=== PATIENT | female | born 1990 | race Caucasian/White ===

== ENCOUNTER → 2018-04-14 14:40 | Outpatient (CLI) | payer OTHER, MEDICAID, SELFPAY ==
[2018-04-14 16:33] LABS: Urine N gonorrhoeae NOT DETECTED
[2018-04-14 17:16] LABS: Urine Chlamydia NOT DETECTED
[2018-04-14 18:09] LABS: HIV 1 and 2 Antibody NEGATIVE (NEGATIVE); Hep C Virus Ab w/Reflex Quant NEGATIVE s/c (NEGATIVE)
[2018-04-17 02:32] LABS: HSV 2 IGG AB < 0.90 index (< 0.90); HSV1IGG < 0.90 index (< 0.90)
[2018-04-19 12:18] LABS: AFP, Serum 25.3 ng/mL; Calc Gestational Age 16.4; Cigarette Smoker N; Donated Egg NOT GIVEN; Donor Egg Age NOT GIVEN; Estriol, Free 0.84 ng/mL; Inhibin A, Dimeric 231 pg/mL; Maternal Ethnicity CAUCASIAN; Maternal Weight 129 lbs; Number of Fetuses 1; Previous Pregnancy Down Syndro NOT GIVEN; hCG, MoM 1.15; hCG, Serum 39.5 IU/mL
== END ==
PROVIDERS: Family Medicine; Visit Provider Obstetrics & Gynecology
DX: Z34.91 Encounter for supervision of normal pregnancy, unspecified, first trimester (principal); Z3A.16 16 weeks gestation of pregnancy
CPT/HCPCS: 36415; 82105; 82677; 84702; 86336; 86695; 86696; 86703; 86803; 87491; 87591

== ENCOUNTER → 2018-05-10 10:42 | Outpatient (CLI) | payer OTHER, MEDICAID, SELFPAY ==
--- NOTE | 2018-05-10 10:48 | DI.US.S_ITS ---
PROCEDURE: US OB >= 14 WEEKS FETUS INDICATIONS: anatomy screening OUTSIDE/PRIOR DATING DATA: Last menstrual period (LMP): Not available. LMP-based estimated date of delivery (CORINA): Not available. First dating scan (date and location): 02/08/18. Estimated date of delivery (CORINA) from first dating scan: 09/26/18, plus or -5 days. TECHNIQUE: Real-time scanning was performed of the fetus, with image documentation and biometric measurements. Endovaginal scanning: Not needed for this study COMPARISON: None. FINDINGS: General: A single living intrauterine gestation is present. Presentation: Vertex Placenta: Placental position is posterior, without previa. Amniotic fluid index: 13.2 cm, normal range is 5-24 cm. heart rate: 155 beats per minute. Maternal cervical canal: 3.2 cm long. Normal lower limit is 2.5 cm. biometrics: Biparietal diameter: 4.6 cm, 19 weeks 6 days Head circumference: 17.3 cm, 19 weeks 6 days Abdominal circumference: 14.8 cm, 20 weeks 1 day Femur length: 3.2 cm, 19 weeks 6 days Estimated gestational age from initial scan: 20 weeks 1 day Composite gestational age from present scan: 19 weeks 6 days Estimated weight and percentile: 325 g, 36th percentile Measurement variability for biometric dating: +/- 7 days from 14 weeks to 15 weeks 6 days gestation, +/- 10 days from 16 weeks to 21 weeks 6 days gestation, +/- 2 weeks from 22 weeks to 27 weeks 6 days gestation, +/- 3 weeks for 28 weeks gestation or later. weight reference: 4500 g or EFW >90/95% is considered macrosomia or large for gestational age. EFW <10% is small for gestational age. EFW 5% or less is considered intra-uterine growth restriction. Anatomic survey: Neuro: Ventricles are non-dilated at less than 10 mm. Cisterna magna is normal at 3-11 mm. Cerebellum is normal in size and morphology. Nuchal skin fold: Normal at less than 6 mm between 14-21 weeks gestational age. Face: Nose and lips, facial profile are normal. Spine: No evidence for spina bifida. Heart: 4-chambered heart is present, with normal ventricular outflow tracts. Diaphragm: Diaphragm is intact. Stomach: Left-sided stomach is present. Kidneys: No hydronephrosis. Normal is less than 5 mm in 2nd trimester, less than 7 mm in 3rd trimester. Cord: 3-vessel cord has orthotopic insertion. Bladder: Normal in size. Extremities: All 4 extremities identified. IMPRESSION: Single living intrauterine gestation with the delivery date projected to be centered on 09/26/18, plus or -5 days. Appropriate interval growth, no anomalies seen. Dictated by: Julian Franz M.D. on 05/10/2018 at 13:38 Approved by: Julian Franz M.D. on 05/10/2018 at 13:41
== END ==
PROVIDERS: PCP Family Medicine; Visit Provider Family Medicine
DX: Z36.89 Encounter for other specified antenatal screening (principal); Z3A.19 19 weeks gestation of pregnancy
CPT/HCPCS: 76811

== ENCOUNTER → 2018-07-21 11:16 | Outpatient (CLI) | payer OTHER, MEDICAID, SELFPAY ==
[2018-07-21 12:57] LABS: Hematocrit 30.5 % (36-46); Hemoglobin 10.7 g/dL (12.0-16.0)
[2018-07-21 13:14] LABS: GTT (PREG) 1 Hour PP 50gm Dose 137 mg/dL (76-139)
== END ==
PROVIDERS: PCP Family Medicine; Visit Provider Family Medicine
DX: Z3A.29 29 weeks gestation of pregnancy (principal)
CPT/HCPCS: 36415; 82950; 85014; 85018

== ENCOUNTER → 2018-09-03 10:03 | Outpatient (CLI) | payer OTHER, MEDICAID, SELFPAY ==
[2018-09-04 11:53] LABS: Strep Grp B PCR NEG for Grp B Strep
== END ==
PROVIDERS: PCP Family Medicine; Visit Provider Family Medicine
DX: Z3A.36 36 weeks gestation of pregnancy (principal)
CPT/HCPCS: 87653

== ENCOUNTER 2018-09-08 10:13 | Outpatient (CLI) | payer OTHER, MEDICAID, SELFPAY ==
--- NOTE | 2018-09-08 11:10 | PM.OBTRLD ---
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) Family History Grandmother Hypertension Social History marital status: unmarried,living together number of children: 1 Smoking Status: Never smoker alcohol intake: never substance use type: does not use Family History Grandmother Hypertension Social History marital status: unmarried,living together number of children: 1 Smoking Status: Never smoker alcohol intake: never substance use type: does not use Evaluation Evaluation Baseline heart rate: 130 Variability: Moderate (11-25) monitor accelerations: Present monitor decelerations: Absent Uterine Contraction Intensity: Mild Category of Tracing: I Diagnosis, Plan/Disposition Final Diagnosis (1) 37 weeks gestation of : Current Visit: Yes Status: Acute Plan/Disposition Plan: 28-year-old at 37 weeks gestation who presented to the center with headache and lower extremity edema. Blood pressure was normal on multiple occasions. Minimal lower extremity edema per nursing. NST reactive. Recommended Tylenol for headache. Follow up in clinic as scheduled later this week.
== END 2018-09-08 11:20 | disposition home or self-care (01) ==
LOC: LABOR 10:56 → OB 09-09 11:39
PROVIDERS: PCP Family Medicine; Visit Provider Family Medicine
DX: Z34.93 Encounter for supervision of normal pregnancy, unspecified, third trimester (principal); R51 Headache; Z3A.37 37 weeks gestation of pregnancy
CPT/HCPCS: 59025; G0378; G0379

== ENCOUNTER 2018-10-01 06:48 | Inpatient (IN) | payer OTHER, MEDICAID, SELFPAY ==
--- NOTE | 2018-10-01 07:34 | P.HPOB_ITS ---
OB HPI Date/Time Date of admission: 10/01/18 Date Patient Seen: 10/01/18 Time Patient Seen: 07:34 History of Present Condition Chief complaint: OBS : 2 Para: 1 Estimated Date of Delivery: 09/26/18 Estimated Gestational Age (weeks): 40w5d Narrative: Skye Alejandro is a 28 year old at 40 weeks and 5 days gestation here for induction of labor for postdates and maternal discomfort. Uncomplicated with normal first and second trimester ultrasounds. Indications Indication for induction OB: post dates and maternal discomfort History of Present care: good care, initiated at week # (11 weeks), number of visits (12) and pounds weight gain (47 lbs) Dating criteria: based on 1st trimester US only Ultrasounds: normal 1st trimester US and normal mid trimester US Obstetrical complications: none Medical complications: none Preadmission Labs Blood type: AB (+) positive -: Antibody screen: negative, GBS status: negative, HBsAG: negative, HIV: negative, HSV 1: negative, HSV 2: negative and RPR/VDLR: negative -: Chlamydia screen: not detected and Gonorrhea screen: not detected -: Rubella: immune HCT: 40.6 Quad screen: Normal 1 hr GTT: 137 Prior (ies) History: 08/14/2016 7 lbs male, light epidural Evaluation Evaluation Baseline heart rate: 120 Variability: Moderate (11-25) monitor accelerations: Present monitor decelerations: Absent Contraction Frequency (minutes): 5 Uterine Contraction Intensity: Mild Category of Tracing: I Cervical dilation (cm): 2 Cervical effacement (%): 75 station: -2 [facility] 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) Family History Grandmother Hypertension Social History marital status: unmarried,living together number of children: 1 Smoking Status: Never smoker alcohol intake: never substance use type: does not use Family History Grandmother Hypertension Social History marital status: unmarried,living together number of children: 1 Smoking Status: Never smoker alcohol intake: never substance use type: does not use Meds Home Medications Medication Instructions Recorded Confirmed Type ondansetron 4 mg disintegrating 4 mg PO Q6H PRN #20 tab 02/19/18 Rx tablet Review of Systems Review of Systems All systems reviewed & are unremarkable except as noted in HPI and below Exam Const General: healthy appearing and comfortable HENMT Head: normal to inspection Ears: hearing grossly normal bilaterally Nose: external nose normal Face and sinus: normal facial exam Mouth: oral mucosae normal Teeth and gingiva: dentition normal Eyes General: appearance normal, both eyes and all related structures Neck Neck: normal visual inspection Resp Effort & Inspection: normal respiratory effort Auscultation: clear to auscultation bilaterally Cardio Rate: regular rate Rhythm: regular rhythm Heart Sounds: S1 normal and S2 normal External Female Exam: external appearance normal Manual OB Exam: dilated 2, effaced 75% and station -2 Uterus Location (Fundal Height): 40 Presentation: vertex Estimated Weight (lbs): 7 Skin General: no rashes or lesions noted Neuro General: alert, awake and oriented x3 Extrem General: no pedal edema Objective Labs Result Diagrams: 10/01/18 08:00
[2018-10-01] MEDS: LACTATED RINGERS 1,000 ML 100 ML IV ×2 (08:20→13:14)
[2018-10-01] MEDS: OXYTOCIN PREMIX 30 UNIT/500 ML PLAST..BAG IV (08:25)
[2018-10-01 09:15] LABS: Add Manual Diff / Slide Review NO; Basophils Absolute Auto 100 /uL (0-100); Basophils Percent Auto 0.6 % (0-2); Eosinophils Absolute Auto 100 /uL (0-450); Eosinophils Percent Auto 0.8 % (2-4); Hematocrit 32.6 % (36-46); Hemoglobin 10.6 g/dL (12.0-16.0); Lymphocytes Absolute Auto 2300 /uL (1100-4500); Lymphocytes Percent Auto 25.2 % (25-40); Mean Corpuscular HGB Conc 32.3 % (30-36); Mean Corpuscular Hemoglobin 25.5 PG (26-34); Mean Corpuscular Volume 78.9 fL (80-100); Monocytes Absolute Auto 500 /uL (0-900); Monocytes Percent Auto 5.7 % (3-14); Neutrophils Absolute Auto 6300 /uL (1500-7000); Neutrophils Percent Auto 67.7 % (50-75); Platelet Count 239 X10^3/uL (150-400); Red Blood Cell Count 4.14 X10^6/uL (4.0-5.2); Red Cell Distribution Width 15.8 % (11.6-14.8); White Blood Cell Count 9.3 X10^3/uL (4.5-11.0)
[2018-10-01 10:42] VITALS: BP 118/75
--- NOTE | 2018-10-01 12:56 | PM.OBPNLAB ---
Date/Time Date Patient Seen: 10/01/18 Time Patient Seen: 12:34 Pain Control Pain control: tolerating well Comments: Contractions becoming more painful but tolerable. Pelvic Exam Dilation (cm): 3 Effacement (%): 90 station: -2 Amniotic membrane status: Ruptured (AROM with small amount of clear fluid) Contractions Pitocin rate (mU/min): 6 Contraction frequency (min): 2 Contraction pattern: Regular Contraction intensity: Moderate Status status: Category l Heart Rate Baseline: 120 Monitor Accelerations: Present Monitor Decelerations: Absent Monitor Variability: Moderate Assessment and Plan Assessment: induction ongoing Plan: continuous present management
[2018-10-01] MEDS: miSOPROStol 200 MCG TABLET 800 MCG PR (16:50)
--- NOTE | 2018-10-01 17:21 | PM.OBPRVD ---
Delivery date: 10/01/18 Induction method: per pitocin protocol Delivery augmentation: rupture of membranes Delivery monitor: external FHT Route of delivery: L&D Laceration Description: Vaginal - 1st Degree and Labial (Left) Delivery repair: vicryl Estimated blood loss (mL): 300 Anesthesia type: Epidural Narrative: VAGINAL DELIVERY NOTE BRIEF HISTORY: Patient is a 28-year-old at 40 and 5 weeks who gave on 10/01/18 at 3:01 p.m. CORINA: 09/26/18 Hospital problems: 40 weeks gestation Epidural anesthesia STAGE I: Labor Patient came in for induction of labor for postdates and maternal discomfort. Pitocin was begun per protocol shortly after admission. Active labor began after artificial rupture of membranes with clear fluid at 12:44 p.m.. Pain was well controlled with epidural. heart tones were category 1 throughout stage I. Stage I duration 1 hr and 32 min. STAGE II: Delivery Patient was complete at 2:16 p.m. and delivered a vigorous female infant at 3:01 p.m. Presentation was vertex and TAVARES. was immediately placed on mother's chest. Cord was clamped and cut after 1 min delay. scores were 9 at one minute and 9 at five minutes. STAGE III: Placenta/Cord The third stage of labor lasted 4 minutes. Placenta delivered spontaneously after active management appeared intact with a three-vessel cord. Left labial laceration repaired with 4-0 Vicryl in the usual fashion. There was a small first-degree vaginal laceration which was not bleeding and not repaired. Fundus firm below umbilicus. Complications: None EBL: 300 mL. Needle and sponge counts were correct. The vagina was inspected and no items were left in situ. Patient was doing well with Anyi, her and boyfriend at bedside.
[2018-10-01 19:55] VITALS: TEMP 37.5
[2018-10-01] MEDS: IBUPROFEN 600 MG TABLET PO (19:55)
[2018-10-01] MEDS: DERMOPLAST SPRAY 20% 60 ML 1 SPRAY TOP (19:56)
[2018-10-02] MEDS: IBUPROFEN 600 MG TABLET PO (02:34)
[2018-10-02] MEDS: DOCUSATE 250 MG CAPSULE PO (09:32)
--- NOTE | 2018-10-02 09:39 | P.DS_ITS ---
Discharge Providers Date of admission: 10/01/18 06:48 Discharge Date: 10/02/18 Primary care physician: Yisel Amezquita DO Consults: 10/01/18 16:55 Consult to [employer] Routine Comment: Discharge provider: Yisel Amezquita DO Summary Date Patient Seen: 10/02/18 Time Patient Seen: 08:45 Procedures: Spontaneous vaginal delivery Hospital Course: Patient is a 28-year-old G2 now P2 status post spontaneous vaginal delivery on 10/02/18 at 3:01 p.m. to a vigorous female. Patient came in for induction and progressed rapidly with Pitocin and artificial rupture of membranes. She received an epidural during labor. Delivery was uncomplicated. A left labial laceration was repaired in the usual fashion. She also sustained a very small first-degree vaginal laceration which was not repaired. Several hours after delivery nursing noted increased vaginal bleeding. Patient was given 800 mcg of misoprostol per rectum and bleeding improved without further issues. Patient has done well . She is ambulating, eating, voiding, and passing flatus without difficulty. Breast-feeding going well. No problems with . She is eager to return home. Exam Temperature 98.3? blood pressure 111/77 heart rate 75 General: Awake and alert, no acute distress. HEENT: NCAT, EOMI, moist oral mucosa CV: Regular rate and rhythm, no murmurs, rubs or gallops Lungs: CTAB, no wheezes, rales, or rhonchi Abdomen: Soft, nontender; bowel tones active; uterus firm 1 cm below umbilicus Genitourinary: Normal external female genitalia. Left labial laceration repair intact. No bleeding from small vaginal laceration. Extremities: Warm, no edema, 2+ pedal pulses bilaterally Peripartum Data Infant Delivery Method: Natural Vaginal Laceration description: Vaginal - 1st Degree (Left) complications: none 1: Gender: Female Disposition of : home Discharge Diagnosis (1) 40 weeks gestation of : Status: Acute (2) Spontaneous vaginal delivery: Status: Acute Status at Discharge Cognitive/behavioral status at discharge: at baseline, oriented Functional status at discharge: independent ambulation Overall status at discharge: patient is back to baseline Time Spent with Patient Total time spent providing and/or coordinating discharge services: Less than 30 minutes Objective Labs Result Diagrams: 10/01/18 08:00 Labs: Laboratory Results - last 24 hr 10/01/18 08:00 Blood Type AB Positive Antibody Screen Negative Discharge Plan Discharge Plan Patient Disposition: Home Discharge comment: Call for fevers, severe pain or bleeding through more than a pad an hour. Discharge Med Rec/Prescriptions Prescriptions: New docusate sodium 250 mg Capsule 250 mg PO DAILY Qty: 30 RF: 0 Follow up/Referrals: Yisel Amezquita DO [Primary Care Provider] - 6 Weeks Provider Discharge Instructions Diet: Diet as Tolerated and Regular Skin/Wound/Dressing Care Report to your healthcare provider any signs of infection, such as:: chills, fever and increased pain Discharge Data Primary Care Provider: Yisel Amezquita Attending Provider: Yisel Amezquita Admit Date/Time: 10/01/18 06:48
[2018-10-02 10:54] VITALS: BP 118/75; PULSE 75; RESP 16; TEMP 36.8
[2018-10-02 15:03] VITALS: BP 118/75; PULSE 75; RESP 16; TEMP 36.8
== END 2018-10-02 15:05 | disposition home or self-care (01) | DRG 542 ==
PROVIDERS: Admitting Provider Family Medicine; PCP Family Medicine; Visit Provider Family Medicine
DX: O48.0 Post-term pregnancy (principal); Z37.0 Single live birth; Z3A.40 40 weeks gestation of pregnancy; O26.813 Pregnancy related exhaustion and fatigue, third trimester; O70.0 First degree perineal laceration during delivery; O72.2 Delayed and secondary postpartum hemorrhage
CPT/HCPCS: 01967; 59050; 59409; 85025; 86850; 86900; 86901; G0379; J2590; J3010; S0191

== ENCOUNTER → 2020-09-07 11:55 | Outpatient (CLI) | payer OTHER, MEDICAID, SELFPAY ==
[2020-09-07 13:13] LABS: Add Manual Diff / Slide Review NO; Basophils Absolute Auto 0 /uL (0-100); Basophils Percent Auto 0.7 % (0-2); Eosinophils Absolute Auto 100 /uL (0-450); Eosinophils Percent Auto 2.5 % (2-4); Hematocrit 39.2 % (36-46); Lymphocytes Absolute Auto 1400 /uL (1100-4500); Lymphocytes Percent Auto 24.5 % (25-40); Mean Corpuscular HGB Conc 33.2 % (30-36); Mean Corpuscular Hemoglobin 30.3 PG (26-34); Mean Corpuscular Volume 91.1 fL (80-100); Monocytes Absolute Auto 400 /uL (0-900); Monocytes Percent Auto 6.5 % (3-14); Neutrophils Absolute Auto 3800 /uL (1500-7000); Neutrophils Percent Auto 65.8 % (50-75); Platelet Count 265 X10^3/uL (150-400); Red Cell Distribution Width 12.4 % (11.6-14.8); White Blood Cell Count 5.7 X10^3/uL (4.5-11.0)
[2020-09-07 13:37] LABS: Alanine Aminotransferase 16 IU/L (<35); Albumin 4.6 g/dL (3.5-5.0); Albumin Globulin Ratio 1.6 (1.0-2.8); Alkaline Phosphatase 44 U/L (38-126); Aspartate Aminotransferase 28 IU/L (14-36); BUN Creatinine Ratio 18.8 (6-22); Bilirubin Total 0.4 mg/dL (0.2-1.3); Blood Urea Nitrogen 15 mg/dL (7-17); Calcium 9.1 mg/dL (8.4-10.2); Carbon Dioxide 30 mmol/L (22-32); Chloride 103 mmol/L (98-107); Estimated Glomerular Filt Rate > 60.0 mL/min (>60); Globulin 2.9 g/dL (1.7-4.1); Glucose 82 mg/dL (70-100); HEMOLYSIS < 15 (0-50); Potassium 4.2 mmol/L (3.4-5.1); Sodium 139 mmol/L (137-145); Total Protein 7.5 g/dL (6.3-8.2)
[2020-09-07 14:04] LABS: TSH w/ Reflex to FT4 0.89 uIU/mL (0.47-4.68)
== END ==
PROVIDERS: PCP Family Medicine; Referring Provider Family Medicine; Visit Provider Family Medicine
DX: R63.4 Abnormal weight loss (principal)
CPT/HCPCS: 36415; 80053; 84443; 85025

== ENCOUNTER → 2022-06-03 09:27 | Outpatient (CLI) | payer OTHER, MEDICAID, SELFPAY ==
[2022-06-03 10:16] LABS: Add Manual Diff / Slide Review NO; Basophils Absolute Auto 0 /uL (0-100); Basophils Percent Auto 0.6 % (0-2); Eosinophils Absolute Auto 0 /uL (0-450); Eosinophils Percent Auto 0.7 % (2-4); Hemoglobin 13.1 g/dL (12.0-16.0); Lymphocytes Absolute Auto 1300 /uL (1100-4500); Lymphocytes Percent Auto 20.1 % (25-40); Mean Corpuscular HGB Conc 34.6 % (30-36); Mean Corpuscular Hemoglobin 30.6 PG (26-34); Mean Corpuscular Volume 88.6 fL (80-100); Monocytes Absolute Auto 400 /uL (0-900); Neutrophils Absolute Auto 4900 /uL (1500-7000); Neutrophils Percent Auto 72.6 % (50-75); Platelet Count 235 X10^3/uL (150-400); Red Blood Cell Count 4.29 X10^6/uL (4.0-5.2); Red Cell Distribution Width 12.8 % (11.6-14.8); White Blood Cell Count 6.7 X10^3/uL (4.5-11.0)
[2022-06-03 10:48] LABS: Alanine Aminotransferase 14 IU/L (<35); Albumin 4.5 g/dL (3.5-5.0); Albumin Globulin Ratio 1.6 (1.0-2.8); Alkaline Phosphatase 47 U/L (38-126); Aspartate Aminotransferase 19 IU/L (14-36); BUN Creatinine Ratio 14.7 (6-22); Bilirubin Total 0.4 mg/dL (0.2-1.3); Blood Urea Nitrogen 11 mg/dL (7-17); C-Reactive Protein Quant < 0.5 mg/dL (<1.0); Calcium 9.1 mg/dL (8.4-10.2); Carbon Dioxide 27 mmol/L (22-32); Chloride 102 mmol/L (98-107); Estimated Glomerular Filt Rate > 60 mL/min (>60); Globulin 2.8 g/dL (1.7-4.1); Glucose 98 mg/dL (70-100); HEMOLYSIS < 15 (0-50); Potassium 4.1 mmol/L (3.4-5.1); Sodium 138 mmol/L (137-145); Total Protein 7.3 g/dL (6.3-8.2)
[2022-06-03 11:18] LABS: TSH w/ Reflex to FT4 1.02 uIU/mL (0.47-4.68)
== END ==
PROVIDERS: PCP Family Medicine; Referring Provider Family Medicine; Visit Provider Family Medicine
DX: F41.9 Anxiety disorder, unspecified (principal)
CPT/HCPCS: 36415; 80053; 84443; 85025; 86140